=== PATIENT | female | born 1955 | race Hispanic/Latino ===

== ENCOUNTER 2020-01-15 18:09 | Emergency (ER) | payer MEDICARE ==
[2020-01-15] MEDS ORDERED: ACETAMINOPHEN EXTRA STRENGTH 500 MG TABLET ONE (18:39)
[2020-01-15] MEDS ORDERED: FUROSEMIDE 10 MG/ML 2ML VIAL ONE (20:02)
[2020-01-15] MEDS ORDERED: ASPIRIN 325 MG TABLET ONE (20:03)
[2020-03-12] MEDS ORDERED: ASPI-1026 PO (12:44)
[2020-03-12] MEDS ORDERED: CLOP75TA32 PO (12:44)
[2020-03-12] MEDS ORDERED: CHOL40002 PO (12:44)
[2020-03-12] MEDS ORDERED: LEVE750T10 PO (12:44)
[2020-03-12] MEDS ORDERED: ALEN70TA2 PO (12:44)
[2020-03-12] MEDS ORDERED: TELM80TA10 PO (12:44)
[2020-03-12] MEDS ORDERED: ATOR40TA71 PO (12:44)
== END 2020-01-15 18:52 | disposition home or self-care (01) ==
LOC: EDH 18:09
DX: G43.009 Migraine without aura, not intractable, without status migrainosus (principal); I10 Essential (primary) hypertension; E78.00 Pure hypercholesterolemia, unspecified; Z87.891 Personal history of nicotine dependence
CPT/HCPCS: 99282; J1940

== ENCOUNTER 2020-03-15 08:30 | Day surgery (SDC) | payer MEDICARE ==
[~2020-03-15] VITALS: Ht 162.6 cm; Wt 92.1 kg
[~2020-03-15 08:30] MED LIST: ALEN70TA2 PO; ASPI-1026 PO; ATOR40TA71 PO; CHOL40002 PO; CLOP75TA32 PO; LEVE750T10 PO; SODIUM CHLORIDE 0.9% 1000ML 1,000 ML IV ONE; TELM80TA10 PO
[2020-03-15 09:31] VITALS: BP 108/45
--- NOTE | 2020-03-15 09:43 | NUR ---
ADVISED DOCTOR CORONEL AND GEOR[place]IE COOLEY CRNA THAT PATIENT TOOK PLAVIX TODAY , OKAY TO PROCEED NO NEW ORDERS.
[2020-03-15] MEDS ORDERED: PROPOFOL 10 MG/ML 20ML VIAL IV ONE (10:12)
[2020-03-15] MEDS ORDERED: GLYCOPYRROLATE 0.2 MG/ML 5 ML VIAL ONE (10:32)
[2020-03-15 10:33] VITALS: BP 99/45
[2020-03-15 10:39] VITALS: BP 114/55
[2020-03-15 10:44] VITALS: BP 117/56
[2020-03-15 10:49] VITALS: BP 120/53
== END 2020-03-15 11:06 | disposition home or self-care (01) ==
LOC: DAH 08:30 → ENDO 08:30
PROVIDERS: ATTEND Internal Medicine Gastroenterology
DX: Z12.11 Encounter for screening for malignant neoplasm of colon (principal); D12.5 Benign neoplasm of sigmoid colon; D12.3 Benign neoplasm of transverse colon; D12.4 Benign neoplasm of descending colon; I10 Essential (primary) hypertension; E78.49 Other hyperlipidemia; R56.9 Unspecified convulsions; B96.81 Helicobacter pylori [H. pylori] as the cause of diseases classified elsewhere; Z86.73 Personal history of transient ischemic attack (TIA), and cerebral infarction without residual deficits; Z11.59 Encounter for screening for other viral diseases; Z86.718 Personal history of other venous thrombosis and embolism
CPT/HCPCS: 36415; 45380; 45385; 88305; 93005; A4215; A4221; A4222; A4223; A4606; A4620; A4649; A4663; J2704; J3490; J7030; U0003; 43200; 87635

== ENCOUNTER → 2024-07-29 | Outpatient (CLI) | payer MEDICARE ==
[~2024-07-29] MED LIST changes: -ALEN70TA2 PO; +ALEN70TA85 PO; -SODIUM CHLORIDE 0.9% 1000ML 1,000 ML IV ONE
== END | disposition home or self-care (01) ==
LOC: RAH 14:25
PROVIDERS: ATTEND Internal Medicine Cardiovascular Disease
DX: I34.0 Nonrheumatic mitral (valve) insufficiency (principal)
CPT/HCPCS: 93306